=== PATIENT | female | born 1955 | race Caucasian/White ===

== ENCOUNTER 2022-07-21 11:58 | Outpatient (CLI) | payer MEDICARE ==
--- NOTE | 2022-07-21 14:06 | XRAY Report ---
PROCEDURE: Knee 3 View RT INDICATIONS: XRAY TECHNIQUE: 3 views of the right knee(s) were acquired. COMPARISON: None. FINDINGS: Bones: No fractures or dislocations. No suspicious bony lesions. Soft tissues: No joint effusion. There is mild chondrocalcinosis along the lateral femorotibial comp artment. IMPRESSION: Chondrocalcinosis. Differential considerations include deposition disease and osteoarthr itis. Reviewed by: Alicia Mayer MD on 07/21/2022 2:[address] [facility] Approved by: Alicia Mayer MD on 07/21/2022 2:[address] [facility] Station ID: [id number]
== END 2022-07-21 11:59 | disposition home or self-care (01) ==
LOC: DI.S 11:58
PROVIDERS: ATTEND Physician Assistant
DX: M11.261 Other chondrocalcinosis, right knee (principal)

== ENCOUNTER 2022-09-10 09:00 | Outpatient (CLI) | payer MEDICARE ==
--- NOTE | 2022-09-10 09:42 | CT Report ---
PROCEDURE: Low Dose Lung Cancer Screen INDICATIONS: HIST OF SMOKING, POST MENOPAUSAL TECHNIQUE: Noncontrast low-dose axial images were acquired from the pulmonary apices to the posterior costophren ic angles. Multiplanar MIP reformats were then reconstructed. For radiation dose reduction, the follo wing was used: automated exposure control, adjustment of mA and/or kV according to patient size. COMPARISON: None. FINDINGS: Image quality: Good Lungs and pleura:Emphysema. Scattered scarring/atelectasis. No dense consolidation. No pleural effusi ons. More focal mild reticulation is seen at the costophrenic angles. Tiny calcified granulomas and scattered micronodules are present. No nodule identified that would darren nge follow-up interval. Mediastinum, heart, and esophagus: Small hiatal hernia and nonspecific distal esophageal wall thicken ing. Coronary calcifications. Left chest wall pulse with electrode lead in place. No pathologic adeno dell identified by size criteria. Chest wall and thyroid: Unremarkable Upper abdomen: Nonobstructing renal calculi on the right. Low-dose noncontrast abdominal images are g rossly unremarkable. Bones: Scattered degenerative changes and leftward spinal curvature. No acute or suspicious lesion id entified. Age-indeterminate height loss of some vertebral bodies, most notably T11. IMPRESSION: Lung RADS 2: Continue annual screening. Pulmonary emphysema and possible mild fibrosis at the pulmonary bases. Age-indeterminate height loss of some vertebral bodies, most notably T11. Other findings as above. Reviewed by: Percy Sanders MD on 09/10/2022 9:40 AM PST Approved by: Percy Sanders MD on 09/10/2022 9:40 AM PST Station ID: [id number]
--- NOTE | 2022-09-10 10:39 | DEXA Report ---
PROCEDURE: Dexa Spine and/or Hip INDICATIONS: HIST OF SMOKING, POST MENOPAUSAL TECHNIQUE: Dual energy x-ray absorptiometry (DXA) was performed on a [employer] System. Regions measur ed are the AP Spine, femoral neck, and if needed forearm. COMPARISON: None. 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 Patients with diagnosis of osteoporosis or osteopenia should have regular bone mineral density assess ment. For those eligible for Medicare, routine testing is allowed once every 2 years. Testing frequ ency can be increased for patients who have rapidly progressing disease or for those who are receivin g medical therapy to restore bone mass. Reviewed by: Leopoldo Rivera MD on 09/10/2022 10:37 AM PST Approved by: Leopoldo Rivera MD on 09/10/2022 10:37 AM PST Station ID: [id number]
== END 2022-09-10 09:01 | disposition home or self-care (01) ==
LOC: DI 09:00
PROVIDERS: ATTEND Physician Assistant
DX: Z12.2 Encounter for screening for malignant neoplasm of respiratory organs (principal); J43.9 Emphysema, unspecified; M81.0 Age-related osteoporosis without current pathological fracture; Z87.891 Personal history of nicotine dependence; Z78.0 Asymptomatic menopausal state

== ENCOUNTER 2022-09-10 09:01 | Outpatient (CLI) | payer MEDICARE ==
--- NOTE | 2022-09-21 10:30 | Mammography Report ---
BILATERAL DIGITAL SCREENING MAMMOGRAM 3D/2D WITH EXAGGERATED CC: 09/10/2022 CLINICAL: Routine screening. No prior exams were available for comparison. There are scattered areas of fibroglandular density in both breasts (category b / 25%-50% glandular t issue). There are benign vascular calcifications in both breasts. No significant masses, calcifications, or other findings are seen in either breast. IMPRESSION: BENIGN There is no mammographic evidence of malignancy. A 1 year screening mammogram is recommended. Based on the Tyrer Cuzick model (a risk assessment model) the patients lifetime risk is 5.8% and her 10 year risk is 3.0%. According to the ACR, ACS, and NCCN guidelines, an annual breast MRI exam ginette g with mammogram is recommended if the patients lifetime risk is 20% or greater. This exam was interpreted at Station ID: [id number]. NOTE: For mammograms, a report in lay terms will be sent to the patient. Approximately 15% of breast malignancies will not be visualized mammographically. In the management of a palpable breast mass, a negative mammogram must not discourage biopsy of a clinically suspicious lesion. Electronically Signed By: Jerry villafuerte/sanam:09/20/2022 16:43:24 letter sent: No_Letter ACR BI-RADS Category 2: Benign Finding(s) 3342F PARENCHYMAL PATTERN: (A) - The breast(s) demonstrate(s) scattered fibroglandular densities. BI-RADS CATEGORY: (2) - 2 RECOMMENDATION: (ANNUAL) - Recommend routine annual screening mammography. [id number] 1 year screening LATERALITY: (B)
== END 2022-09-10 09:02 | disposition home or self-care (01) ==
LOC: DI 09:01
PROVIDERS: ATTEND Physician Assistant
DX: Z12.31 Encounter for screening mammogram for malignant neoplasm of breast (principal)